=== PATIENT | female | born 1995 | race Caucasian/White ===

== ENCOUNTER 2016-11-05 15:34 | Emergency (ER) | payer BC ==
[~2016-11-05] VITALS: Ht 160 cm; Wt 58.1 kg
[2016-11-05 15:34] VITALS: BP 107/70
== END 2016-11-05 16:26 | disposition home or self-care (01) ==
LOC: ER 15:37
DX: S60.450A Superficial foreign body of right index finger, initial encounter (principal); X58.XXXA Exposure to other specified factors, initial encounter; Y93.89 Activity, other specified; Y92.89 Other specified places as the place of occurrence of the external cause; Y99.9 Unspecified external cause status
CPT/HCPCS: A4606; Z7610